=== PATIENT | female | born 1995 | race Hispanic/Latino ===

== ENCOUNTER 2016-08-22 17:24 | Emergency (ER) | payer OTHER ==
[~2016-08-22] VITALS: Ht 144.8 cm; Wt 54.5 kg
[~2016-08-22 17:24] MED LIST: IBUP-1827 PO; ONDA4TAB12 PO; PROM25TA14 PO
[2016-08-22 17:39] VITALS: BP 99/68; PULSE 75; RESP 16; O2SAT 98
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
[2016-08-22 19:21] VITALS: BP 109/61; PULSE 105; RESP 16; O2SAT 98
== END 2016-08-22 19:22 | disposition home or self-care (01) ==
LOC: SED 17:24
DX: O99.89 Other specified diseases and conditions complicating pregnancy, childbirth and the puerperium (principal); R30.0 Dysuria; R11.10 Vomiting, unspecified; R10.13 Epigastric pain; F15.20 Other stimulant dependence, uncomplicated; F17.200 Nicotine dependence, unspecified, uncomplicated; Z3A.00 Weeks of gestation of pregnancy not specified; Z87.820 Personal history of traumatic brain injury; Z87.891 Personal history of nicotine dependence

== ENCOUNTER 2017-01-15 12:34 | Inpatient (IN) | payer OTHER, MEDICAID ==
[~2017-01-15] VITALS: Ht 152.4 cm; Wt 65.3 kg
[2017-01-15 13:03] LABS: Mean Corpuscular Hemoglobin 22.9 pg (27.0-35.0); Mean Corpuscular Volume 73.9 fL (81-100)
[2017-01-15] MEDS: Lactated Ringer's 1,000 ML IV SCH ×2 (13:12→16:33)
[2017-01-15] MEDS ORDERED: Lactated Ringer's 1,000 ML IV PRN (13:12)
[2017-01-15] MEDS ORDERED: Ondansetron 2 mg/mL 2 mL Inj IVPUSH PRN ×3 (13:15→23:45)
[2017-01-15] MEDS ORDERED: Sodium Chloride LOK Flush 10 mL Syringe IVFLUSH PRN (13:15)
[2017-01-15] MEDS ORDERED: Hemorrhage Kit, Post Partum XX ONE (13:15)
[2017-01-15] MEDS ORDERED: Oxytocin 10 Unit/mL Inj IM PRN (13:15)
[2017-01-15] MEDS ORDERED: Oxytocin 30 Units/500 mL LR 30 UNITS in IV Premix 1 EACH IV PRN (13:15)
[2017-01-15] MEDS ORDERED: Carboprost 250 mCg/mL Inj IM PRN (13:15)
[2017-01-15] MEDS ORDERED: Methylergonovine 0.2 mg/mL Inj IM PRN (13:15)
[2017-01-15] MEDS: Misoprostol 25 mCg/0.25 Tablet VAGINAL SCH ×2 (13:15→16:10)
[2017-01-15] MEDS ORDERED: diphenhydrAMINE 50 mg Capsule PO PRN (13:15)
[2017-01-15] MEDS ORDERED: Penicillin G K Inj 5,000,000 UNITS in Dextrose 5% Minibag Plus 100 ML IV ONE (13:30)
[2017-01-15 14:03] LABS: Mean Corpuscular Hemoglobin 23.5 pg (27.0-35.0); Mean Corpuscular Volume 74.6 fL (81-100)
--- NOTE | 2017-01-15 14:13 | PCM.HPOB ---
Subjective Referring Provider: Admitting Physician: Rochelle Parrish MD Primary Care Physician: Arturo Garrison MD Attending Physician: Rochelle Parrish MD Chief Complaint high blood pressure History of Present History of Present Illness Ms. Elena Gabriel is a 21-year-old woman at 37 weeks 5 days gestation within BUD of 01/31/2017 based on initial 17 week ultrasound who presented to the [facility] for -induced hypertension. Her has been complicated by late entry into care, Chlamydia and gonorrhea in , positive amphetamine on urine drug screen during , and Charcot Lupe tooth disease. She was also incarcerated during this . She reports that yesterday she felt some lower abdominal discomfort with associated nausea and 1 episode of vomiting. This has since resolved. She does not have headache, changes in her vision, dizziness, lightheadedness, or increased swelling in her feet. She does not have any upper abdominal pain. She has not had any gushes of fluid, vaginal discharge, or vaginal bleeding. She has not felt any contractions. She has not had any fever, chills, nasal congestion, sore throat, cough, or rash. OB History: (1), Para (0), Term (0), Pre-term (0), ( 0), Living (0) Obstetrical Complications: Other (late entry into care, charcot lupe tooth disease, chlamydia and gonorrhea in , positive amphetamine UDS) Past Medical History Obstetrical History: She saw a genetic counselor at the [facility]. An amniocentesis was offered for diagnosis of Charcot Lupe Tooth, but she declined an amniocentesis. From the pt's EHR, she did indicate that she wants to test the baby shortly after . 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 There is a 1 in 2 chance that her child will inherit the gene mutation. Surgical History: Facial reconstruction for facial trauma Multiple foot surgeries Left hip surgery Hx Tobacco Use: Yes Smoking Status: Current Every Day Smoker (1-2 cigarettes per day ) Hx Alcohol Use: No Hx Substance Use: No Review of Systems Eyes: Denies: Blurred Vision, Double Vision Cardiovascular: Denies: Chest Pain Respiratory: Denies: Cough, SOB with Exertion Gastrointestinal: Denies: Constipation, Diarrhea, Epigastric pain, Nausea, Vomiting Genitourinary: Denies: Change in Frequency, Dysuria Skin/Breasts: Denies: Rash Neurological: Denies: Dizziness Medications Home medications vitamin Allergy Coded Allergies: No Known Allergies (Verified Allergy, Unknown, 08/22/16) Exam Vital Signs 98.4F, blood pressure 132/85, heart rate 106 bpm Exam Baseline 150s with variability Constitutional: Well-developed, Well-nourished HEENT: Atraumatic, EOMI Lungs: Clear to Auscultation, Normal Air Movement Heart: Exam Unremarkable, Regular Rate/Rhythm, Normal S1, Normal S2, No Murmurs /Rubs/Gallops Abdomen: Gravid, Normal bowel sounds, No tenderness Extremities: Pulses Palpable x4, Warm, No Edema Neurological/Psychiatric: Alert, Oriented X3, Cooperative, No Acute Distress Neuro: Cranial Nerves 3-12 nl, Normal Speech, Other (decreased muscle strength bilateral upper and lower extremities) Labs/Diagnostics Labs Item Value Date Time Blood Urea Nitrogen 13 mg/dL 01/15/17 1258 Creatinine 0.37 mg/dL L 01/15/17 1258 Uric Acid 5.1 mg/dL 01/15/17 1258 Aspartate Amino Transf (AST/SGOT) 18 U/L 01/15/17 1258 Alanine Aminotransferase (ALT/SGPT) 10 U/L 01/15/17 1258 White Blood Count 7.3 th/mm3 01/15/17 1349 Hematocrit 31.1 % L 01/15/17 1349 Platelet Count 186 khai/L 01/15/17 1349 Mean Corpuscular Hemoglobin Concent 31.5 % L 01/15/17 1349 Hemoglobin 9.8 g/dL L 01/15/17 1349 Red Blood Count 4.17 mil/mm3 01/15/17 1349 Mean Corpuscular Volume 74.6 fL L 01/15/17 1349 Mean Corpuscular Hemoglobin 23.5 pg L 01/15/17 1349 Red Cell Distribution Width 16.2 % H 01/15/17 1349 Maternal Blood Type: O (positive) Antibody Screen: negative Group B Strep Results: Positive Rubella: Non-Immune Additional Information labs: Blood type O+, antibody screen negative, Varicella non-immune, rubella non-immune, RPR nonreactive, HBsAg negative, HIV nonreactive, hepatitis C negative, gonorrhea and chlamydia positive, GBS positive, Pap smear showed Trichomonas vaginalis and negative for intraepithelial lesion and malignancy UDS on 11/20/2016 showed positive amphetamines, repeat UDS on December 04 and December 22 were negative. Repeat gonorrhea and chlamydia on 11/20/2016 were negative OB Intrapartum Assessment/Plan Assessment 21-year-old woman at 37 weeks 5 days gestation within BUD of 01/31/2017 based on initial 17 week ultrasound. Complicated by late entry into care, Chlamydia and gonorrhea in , positive amphetamine on urine drug screen during , and Charcot Lupe tooth disease. She was also incarcerated during this . GBS positive - Pt will need Varicella and rubella vaccines post- - Start Cytotec - Start penicillin G loading dose and then repeat every 4 hours until delivery - Monitor FHR - Repeat HIV, hepatitis C, hepatitis B, and RPR ordered due to pt being incarcerated during induced hypertension - Two elevated blood pressure readings at least 4 hours apart - Preeclampsia labs ordered and BUN, uric acid, AST, and ALT are within normal limits. Urine creatinine, protein, and protein/creatinine ratio ordered. - Monitor blood pressure - Induction of labor as above Chlamydia, gonorrhea, and Trichomonas infection in - Chlamydia, gonorrhea, and Trichomonas positive on Pap smear on 09/17/16 - She was treated with azithromycin and ceftriaxone. G&C negative on repeat testing after treatment on 11/20/16 - Repeat chlamydia and gonorrhea swab ordered in the outpatient office today - 2000 mg Flagyl PO once Late to care - Social work consult placed Positive UDS for amphetamines - UDS unable to be repeated in the office due to urine spill - Repeat UDS here Charcot Lupe Tooth disease - Will need lavender top and at least 2 mL whole blood for the 's cord blood genetic testing as discussed with pediatrics. The genetics office will fax Dr. Elena the specific orders that are needed. Evelina Cameron DO Jan 15, 2017 14:13
[2017-01-15] MEDS ORDERED: Penicillin G K Inj 3,000,000 UNITS in IV Premix 1 EACH IV SCH (17:30)
--- NOTE | 2017-01-15 20:14 | NUR ---
Social Work Note: Referral received D/A: DIKE SUPERVISOR spoke with [employer] inspector canned food reconditioning Monserrat regarding Pt. SW consult requested due to history of substance use and an amphetamine positive UDS during care. Monserrat reported that Pt was in induction at this time and it was agreed that DIKE SUPERVISOR would meet with Pt to complete assessment once NB had been delivered. P: DIKE SUPERVISOR to assess Pt fully once NB is delivered. Maya Byrne, MELY, AAC
[2017-01-15] MEDS: fentaNYL-PF 50 mCg/mL 2 mL Inj IVPUSH PRN ×2 (20:38→22:36)
--- NOTE | 2017-01-15 21:15 | PROG NOTE ---
[address] [address] PROGRESS NOTE PATIENT: MARVA DALEY : 1995 MR#: [id number] ADMIT: 01/15/2017 JOB ID: [id number] DATE: 01/15/2017 SUBJECTIVE: Patient is a 21-year-old, 1, para 0, at 37 weeks and 5 days gestational age by 17 week ultrasound, admitted by Dr. Moore for induction of labor secondary to gestational hypertension. Induction of labor started with number one at 16:[address] Moore. I saw the patient five hours later, and vital signs are 125/85, respirations are 18, pulse is 105, temperature 36.4 degrees centigrade. heart tracing is showing baseline of 135 beats per minute, positive accelerations, no decelerations, moderate variability, reactive tracing. Cervical exam 1 cm dilated cervix, 50% effaced, -3 station, medium consistency, mid position, vertex presentation. Rodriguez score of 4. Sterile speculum inserted in the patient's vagina and the cervical ripening balloon was inserted into the uterus. 80 cc of normal saline injected in the uterine balloon, then the speculum was removed and then after adjusting positioning of the balloon, 80 cc injected in the vaginal balloon. Adequate placement confirmed. The patient tolerated the insertion well. Continue with cervical ripening balloon for 12 hours or until balloon fell out. LABORATORIES: H and H is 9.8 and 31.1, platelets are 186. White blood count 7.3. UDS positive for cannabinoids. Confirmatory test is pending. ASSESSMENT AND PLAN: 1. Patient is 1, para 0, at 37 weeks 5 days gestational age by 17 week ultrasound, admitted for induction of labor secondary to gestational hypertension. Continue induction of labor with cervical ripening balloon to be followed by Pitocin if appropriate. 2. Group B strep culture positive. Start penicillin with active labor start or spontaneous rupture of membranes whichever is earlier. 3. Discussed intrapartum analgesia options with the patient. She is considering epidural. Will give IV pain medication p.r.n. until the patient has decided. 4. Reactive heart tracing. Continue with external monitoring. All the above discussed in detail with the patient who agreed to the plan.
[2017-01-15] MEDS ORDERED: fentaNYL 2 mCg/mL-Bupivicaine 0.125% 100 mL Premix EPIDURAL ONE (23:13)
[2017-01-15] MEDS ORDERED: Lactated Ringer's 1,000 ML IV SCH (23:36)
[2017-01-15] MEDS ORDERED: Lactated Ringer's 500 ML IV ONE ×2 (23:36→23:45)
--- NOTE | 2017-01-15 23:36 | PCM.HPANE ---
Patient Data Surgeon Admitting Provider:Rochelle Parrish MD Attending Provider:Rochelle Parrish MD Primary Care Physician:Arturo Garrison MD Other Provider: Reason for Visit Induction INDUCTION Ht/WT & BMI Body Mass Index Allergies Coded Allergies: No Known Allergies (Verified Allergy, Unknown, 08/22/16) Past Anesthesia History Anesthesia History: Denies:: Abnormal Airway, Anesthesia Reactions, Difficult Intubation, Fam Anesthesia Reaction, Fam Malignant Hypertherm, Malignant Hyperthermia Diabetes History Hx Diabetes?: No MRSA MRSA: No Medications Hypertension Medication: No Home Meds Incl Beta Flavio: No Active Scripts Ibuprofen 600 Mg [id number] Mg PO QID PRN For Pain #30 TABLET Ref 0 Prov:Kelsi Wallace MD 06/23/16 Ondansetron ODT 4 Mg Tab.rapdis4 Mg PO TID NAUSEA #8 TABLET Prov:Kelsi Wallace MD 06/23/16 Promethazine 25 Mg [id number] Mg PO Q8H PRN Headache #20 TABLET Ref 0 Prov:Dhaval Ojeda MD 03/16/16 History History of ENT Problems?: No HEENT History: Denies:: Abnormal Airway Cataracts Difficult Intubation Dysphagia Glaucoma Hearing Problem Sinus Problem TMJ Denture Type: None Teeth Condition: Within Normal Limits Hx of Heart Problems?: No Cardiovascular History: Denies:: AICD Abdominal Aortic Aneurism Atrial Fibrillation Cardiac Surgery Chest Pain Congestive Heart Failure Coronary Artery Disease Edema Heart Murmur Hypertension Irregular Heartbeat Pacemaker Peripheral Vascular Rheumatic Fever Thrombophlebitis Valvular Heart Disease Hx of Respiratory Problem?: No Respiratory History: Denies:: Asthma COPD Chest Surgery Cough Dyspnea Emphysema Hemoptysis Oxygen Administration Pneumonia Pulmonary Embolism Tuberculosis Use of C-PAP Machine Use of Inhalers / NEBS Hx Neurologic Problems?: Yes Neurological History: Positive for:: Peripheral Neuropathy Denies:: Alzheimer's Disease CVA Dementia Dizziness Headaches Multiple Sclerosis Parkinson's Disease Seizures TIA Other History/Comments CMT Hx of GI Problems?: No Gastrointestinal History: Denies:: Cirrhosis Diverticulitis Gall Bladder Disease Gastroesphageal Reflux Gastrointestinal Bleeding Heartburn Hepatitis Hiatal Hernia Liver Disease Rectal Bleeding Hx of Problems?: No Genitourinary History: Denies:: HX of Hemodialysis Kidney Stones Urinary Tract Infection HX of Peritoneal Dialysis: No Female Hx: Positive for:: Currently Hx Musculoskeletal Problems?: No Hx of Psycho/Social Problems?: No Hx Surgeries?: Yes (HIP/FOOT, MULTIPLE FACE SURGERIES/RECONSTRUCTION) History Blood Transfusions: Denies:: Blood Transfusions Hx Diabetes: No Hx Alcohol Use: NoHx Substance Use: No Smoking Status: Current Every Day Smoker (1-2 cigarettes per day ) Have You Smoked inLast 12 mo: Yes Stop/Bang MYNOR Risk Assessment: Low Risk, <3 Yes Risk Assessment Category Category 1A: Patient has history of documented sleep apnea, and HAS NOT received any narcotic, sedative or anesthesia administration during this stay. Category 1B: Patient has history of documented sleep apnea, and HAS received any narcotic , sedative or anesthesia administration during this stay Category 2: Patient has SUSPECTED Obstructive Sleep Apnea, and HAS received any narcotic , sedative or anesthesia administration during this stay. Category 3: Patient has SUSPECTED Obstructive Sleep Apnea and HAS NOT received narcotic, sedative or anesthesia administration during this stay. Category 4: Outpatient in Procedural Areas with known sleep apnea or who screen positive for High Risk via the STOP/BANG questionnaire. Exam Exam General Appearance: Alert, Oriented X3, Cooperative, No Acute Distress HEENT/AIRWAY: MP 2 Lungs: Clear to Auscultation, Normal Air Movement Heart: Exam Unremarkable, Regular Rate/Rhythm, Normal S1, Normal S2, No Murmurs /Rubs/Gallops Meds/Labs/Diagnostics Admission Meds Current Medications Lactated Ringer's (Lr) 1,000 ml @ 125 mls/hr Q8H IV Last administered on 16:33; Start 01/15/17 at 13:12 Misoprostol (Cytotec) 25 mcg Q4H VAGINAL Last administered on 01/15/17 16:10; Start 01/15/17 at 13:15 Metronidazole HCl (Flagyl) 2,000 mg ONCE ONCE PO Last administered on 16:59; Start 01/15/17 at 16:15; Stop 01/15/17 at 16:20; Status DC Labs Test 01/15/17 12:58 01/15/17 13:49 01/15/17 18:24 Hematology Comments Blood Urea Nitrogen 13mg/dL (6-20) Creatinine 0.37mg/dL (0.57-1.00) Uric Acid 5.1mg/dL (2.6-7.2) Aspartate Amino Transf (AST/SGOT) 18U/L (0-50) Alanine Aminotransferase (ALT/SGPT) 10U/L (0-32) White Blood Count 7.3th/mm3 (3.8-10.1) Red Blood Count 4.17mil/mm3 (3.90-5.20) Hemoglobin 9.8g/dL (12.0-15.6) Hematocrit 31.1% (35.0-46.0) Mean Corpuscular Volume 74.6fL (81-100) Mean Corpuscular Hemoglobin 23.5pg (27.0-35.0) Mean Corpuscular Hemoglobin Concent 31.5% (32.0-37.0) Red Cell Distribution Width 16.2% (12.3-15.4) Platelet Count 186bil/L (150-400) Urine Random Creatinine 92mg/dL (16-392) Urine Random Total Protein 43mg/dL (0-15) Urine Protein/Creatinine Ratio 0.47 (0-200) Urine Opiates Screen Negative Urine Methadone Screen Negative Urine Barbiturates Screen Negative Urine Amphetamines Screen Negative Urine Benzodiazepines Screen Negative Urine Cocaine Metabolite Screen Negative Urine Cannabinoids Screen Positive Plan Impression Patient chart reviewed, patient interviewed and anesthestic plan with risks, benefits, and alternatives discussed, and informed consent obtained. NPO per Anesth. Guidelines: Yes ASA Physical Status: ASA2 Mod Systemic Disease Anesthetic Plan: Epidural Bene/Risks/Altern/Consents: No HP Complete Prior to Induction: No Sung Eldridge MD Jan 15, 2017 23:36
[2017-01-15] MEDS ORDERED: Atropine 1 mg/10 mL (Code) Syringe IVPUSH PRN (23:40)
[2017-01-15] MEDS ORDERED: fentaNYL 2 mCg/mL-Bupiv 0.125% 100 ML EPIDURAL SCH (23:40)
[2017-01-15] MEDS ORDERED: EPHEDrine Sulfate 50 mg/mL Inj IVPUSH PRN (23:40)
[2017-01-16] MEDS ORDERED: Sodium Chloride LOK Flush 10 mL Syringe IVFLUSH SCH (00:30)
[2017-01-16] MEDS ORDERED: Lactated Ringer's 1,000 ML IV SCH ×2 (05:09→07:58)
[2017-01-16] MEDS ORDERED: Oxytocin 30 Units/500 mL LR 30 UNITS in IV Premix 1 EACH IV PRN ×2 (05:10→08:00)
[2017-01-16] MEDS ORDERED: Carboprost 250 mCg/mL Inj IM PRN (08:00)
[2017-01-16] MEDS ORDERED: Ascorbic Acid 500 mg Tablet PO SCH (08:00)
[2017-01-16] MEDS ORDERED: Hemorrhage Kit, Post Partum XX ONE (08:00)
[2017-01-16] MEDS ORDERED: Benzocaine (Dermoplast) 20% 60 Gm Spray TOPICAL PRN (08:00)
[2017-01-16] MEDS ORDERED: oxyCODONE-Acetamin 5-325 mg Tablet PO PRN (08:00)
[2017-01-16] MEDS ORDERED: Methylergonovine 0.2 mg/mL Inj IM PRN (08:00)
[2017-01-16] MEDS ORDERED: Oxytocin 10 Unit/mL Inj IM PRN (08:00)
[2017-01-16] MEDS ORDERED: LANOlin HPA 7 Gm Ointment TOPICAL PRN (08:00)
[2017-01-16] MEDS ORDERED: Witch Hazel-Glycerin Pads TOPICAL PRN (08:00)
--- NOTE | 2017-01-16 08:45 | OP ---
[address] [address] OPERATIVE REPORT PATIENT: MARVA DALEY : 1995 MR#: [id number] ADMIT: 01/15/2017 JOB ID: [id number] DATE OF SURGERY: 01/16/2017 DELIVERY NOTE: SURGEON: Carlos Enrique Bess MD. PREOPERATIVE DIAGNOSIS(ES): POSTOPERATIVE DIAGNOSIS(ES): PROCEDURE: A 21-year-old, 1, para 0, at 37 weeks and 6 days by 17 week ultrasound, who is admitted for induction of labor for gestational hypertension. Induction started with Cytotec, followed by cervical ripening and balloon and after the balloon was filled, the patient progressed spontaneously to fully dilated. She progressed from 6 cm to fully dilated in a few minutes and had a spontaneous vaginal delivery with nursing staff. When I arrived, the placenta was delivering spontaneously. Upon inspection it was noted to be intact with three-vessel cord marginally inserted. Firm uterine fundus after delivery of the placenta. No blood clots retrieved. Inspection of the perineum revealed three lacerations, one second degree perineal at 6 o'clock position and two labial lacerations bilaterally. Lidocaine 1% with epinephrine was injected for local analgesia at the three sites. Rectal exam confirmed the second degree perineal laceration. The perineal laceration was repaired in two layer fashion with continuous locked suture of 2-0 Vicryl and the labial lacerations were repaired with 3-0 Vicryl continuous suture. Good hemostasis assured. The patient tolerated the procedure well. FINDINGS: Single viable female with Apgars 8/9. Weight is still pending. ESTIMATED BLOOD LOSS: Approximately 200 cc. Mom and baby recovering in stable condition in labor and delivery room. 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 cord blood collected for testing and specimen will be sent for outside lab by back grinder. History of amphetamines. UDS on admission was positive for cannabinoids only. Rubella nonimmune, we will vaccinate . Recurrent chlamydia and Trichomonas was treated by the Dr. Moore yesterday. Consider repeat testing . COUNTS: Sponge, instrument and needle counts were correct x2.
[2017-01-16] MEDS ORDERED: Measles-Mumps-Rubella Vaccine 0.5 mL Inj SUBQ ONE (12:40)
[2017-01-17 08:00] LABS: Mean Corpuscular Hemoglobin 22.9 pg (27.0-35.0); Mean Corpuscular Volume 74.8 fL (81-100)
--- NOTE | 2017-01-17 09:30 | PCM.DIOB ---
Obstetrical Disch Instruction Dates of Hospitalization Date of Hospital Admission Jan 15, 2017 at 13:00 Providers Admitting Physician: Rochelle Parrish MD Primary Care Physician: Arturo Garrison MD Attending Physician: Rochelle Parrish MD Diet Discharge Diet: No restrictions Activity Discharge Activity-General: Pelvic Rest for 6 weeks, Balance rest and activity , Activity as energy allows, No lifting >10 pounds for 4-6 weeks Dressing and Incisional Care Hygiene: May shower, NO bathtub, hot tub or whirlpool, Sitz bath, Dermoplast spray, Witch Ele pads Follow Up Plan Follow-up appointment: Weeks (6) Call your provider for: Fever or Chills, Shortness of breath, Heavy vaginal bleeding Kimber Moore MD Jan 17, 2017 09:30
[2017-01-17] MEDS ORDERED: DOCU-41 PO (09:34)
[2017-01-17] MEDS ORDERED: IBUP800T28 PO (09:34)
[2017-01-17] MEDS ORDERED: FERR-83 PO (09:37)
[2017-01-17 09:42] VITALS: BP 119/87; PULSE 102; RESP 20
--- NOTE | 2017-01-17 10:55 | NUR ---
Social Work Note: Initial Assessment D/A: PORTER SAMPLE CASE consult requested due to a positive UDS for THC in the hospital and a positive UDS for amphetamines during care as well as various social concerns. PORTER SAMPLE CASE spoke with [facility] staff developer and was informed that Pt has been slow to hardin and not engaged in caring for BG. staff developer indicated that Pt's mother had been providing the majority of care for BG and had been initiating feedings and diaper changes while Pt sat and observed. 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 There is a high probability that BG could also develop this disorder. staff developer indicated that Pt's mother would be out of town this week for work and would not be available to assist Pt when she discharges home. staff developer expressed concerns regarding Pt's ability to successfully and safely care for BG at home independently at discharge. PORTER SAMPLE CASE met with Pt at bedside. Pt is a 21 year old female who gave to BG on 01/16/2017. Pt reported that she currently lives with her parents and her brother in [place]. Pt expressed her intent to return to this home with BG upon discharge. Pt reported that she did not have supplies for BG when she was initially admitted but that family had since supplied a car seat, crib, clothing and diapers. PORTER SAMPLE CASE noted the car seat in the hospital room. Pt explained that her parents were going to be out of town until , 01/22/2017. Pt indicated that she would not be alone at home this week because her brother and his girlfriend also live in the home and will be in town. Pt further explained that her sister lives just down the street from her home and will be available to help if needed during the day. Pt reported that she is not currently enrolled in WIC or TANF but is receiving food stamps and SSI related to her disability. Pt indicated that she was positive for amphetamines just after she found out that she was and denied any further use of meth throughout the . Pt reported that her head injuries cause her to experience headaches which she treats using edible THC. Pt explained that she last used THC two weeks prior to admission to the hospital. Pt reported that she is currently on probation related to an arrest for driving under the influence and without a license a few months ago. Pt indicated that she also attends court ordered CD treatment with [facility]. Pt explained that she is scheduled to turn herself in to the [facility]p for a 10 day stay in April and has already arranged for BG to be cared for by her family during that time. Pt denied all other legal history. Pt denied any history of DV or mental illness. Pt reported that she has supportive family and friends who are planning to assist her in caring for BG. Pt reported that she does not know who FOB is and does not have a supportive or involved partner. Pt identified no additional needs prior to discharge. P: Pt was positive for THC at delivery and staff developer expressed significant concerns regarding Pt's engagement in caring for BG and Pt's level of social support. PORTER SAMPLE CASE conferred with [facility] MD Rodriguez and the decision was made to notify [facility]PS of the above concerns. PORTER SAMPLE CASE informed Pt of the decision to report to CPS and encouraged Pt to view CPS involvement as a positive thing that would possibly provide additional supports and Pt expressed that she intended to do this. PORTER SAMPLE CASE called CPS and spoke with CPS salvage worker Jeff Danielson to provide the above information. Jeff indicated that he was not sure if the information would screen in for further investigation and expressed that PORTER SAMPLE CASE would be contacted by CPS verifier if it did. [facility] MD Rodriguez indicated that Pt would be discharged to border status today and BG would require a few more days of observation for possible withdrawal symptoms prior to discharge. Maya Byrne, PORTER SAMPLE CASE, AAC
--- NOTE | 2017-01-17 12:02 | DIS ---
[address] [address] DISCHARGE SUMMARY PATIENT: MARVA DALEY : 1995 MR#: [id number] ADMIT: 01/15/2017 JOB ID: [id number] DIS: 01/17/2017 ADMISSION DIAGNOSES: 1. A 21-year-old G 1, P 0 at 37 plus five weeks' gestation admitted for an induction of labor due to gestational hypertension. 2. Late entry into care. 3. Multiple positive gonorrhea and Chlamydia tests in with test of cure documented. 4. Positive amphetamines on urine drug screen of . 5. Untreated Trichomonas infection during treated at the time of admission. 6. Hapstmf-Smqoc-Nixeh disease. 7. Rubella and varicella immune. 8. Poor social situation, incarcerated this . 9. GBS positive. DISCHARGE DIAGNOSES: 1. A 21-year-old G 1, P 0 at 37 plus five weeks' gestation admitted for an induction of labor due to gestational hypertension. 2. Late entry into care. 3. Multiple positive gonorrhea and Chlamydia tests in with test of cure documented. 4. Positive amphetamines on urine drug screen of . 5. Untreated Trichomonas infection during treated at the time of admission. 6. Zprlybk-Ofvgz-Lfzcr disease. 7. Rubella and varicella immune. 8. Poor social situation, incarcerated this . 9. GBS positive. PROCEDURES PERFORMED: Spontaneous vaginal delivery of a live born female infant on January 16, 2017 at 0621 hour weighing 7 pounds 5 ounces or 3327 g with Apgars of 8 at one minute and 9 at five minutes. REASON FOR ADMISSION: This is a 21-year-old G 1, P 0 female who presented at 37 plus five weeks' gestation for induced hypertension. Her was complicated by late entry into care with multiple gonorrhea and Chlamydia tests in the with a documented test of cure, positive amphetamine and cannabinoids on her urine drug screen, Hcthavm-Uqpfh-Wlsls genetic disorder and untreated Trichomonas in her that was identified at the time of admission. She was seen in clinic and noted to have elevated blood pressures. She also had limited care and due to her multiple elevated blood pressures she was sent over to the [facility] for evaluation. When diagnostic criteria for gestational hypertension was met, it was at this point in time she was admitted for a planned induction of labor. REASON FOR ADMISSION AND HOSPITAL COURSE: The patient was admitted on the for an induction of labor. She received 2 g of Flagyl at admission for her untreated Trichomonas. Cytotec was placed the afternoon of the and after this was completed, she then had a Campos cervical ripening balloon placed. Penicillin was also started for her GBS positive status and a urine drug screen as well as STD testing was completed returning positive for marijuana but was otherwise within normal limits. After the cervical ripening balloon was inserted, she spontaneously progressed to complete dilation in a short period of time and then went on to deliver with the nursing staff prior to the providers arrival. Please see the delivery note for details. On day #1, her pain was well controlled. She was tolerating a regular diet. She was voiding and ambulating well on her own and her was doing well as well. Social Work was consulted due to the patient's poor social situation and they will see the patient again prior to her discharge. She was noted to be rubella and varicella nonimmune and had received an MMR vaccine prior to discharge. Varicella vaccine will be followed up in our clinic as an outpatient. She was deemed stable for discharge on day one after Social Work saw her . Her blood pressures were also noted to be stable throughout her time on labor and delivery and throughout the evening of day 0 through day 1, her blood pressures range from 110s-130s/70s-80s. PHYSICAL EXAMINATION ON DAY OF DISCHARGE: Blood pressure is 119/87, pulse is 102, respiratory rate is 18. Temperature is 36.6. In general she is awake, alert, oriented, no acute distress. Comfortable in her room. She is eating breakfast and sitting up in bed and the remainder the physical examination was deferred. Her mood is good. Her is in the room and is bottle feeding next to her with a family member. INSTRUCTIONS AT DISCHARGE: The patient was advised to remain on pelvic rest for six weeks including no tampons, douching or intercourse. She was asked to call with any signs or symptoms of infection including fever greater than 100.5 degrees, severe pain, malodorous vaginal discharge or bleeding more than a pad per hour. MEDICATIONS AT DISCHARGE: Included ibuprofen 800 mg p.o. q.8 hours p.r.n. pain as well as Colace 100 mg p.o. b.i.d. On day one, labs were completed which showed that her hemoglobin had dropped from 10 pre delivery down to 7.2, and so ferrous sulfate started at 325 mg p.o. t.i.d. was ordered. She was also given a prescription for Colace and asked to continue her vitamins as prescribed. She was Rh positive. She had received her rubella vaccine prior to discharge and she will followup with her varicella vaccine as an outpatient as this is not available in the hospital. All questions and concerns of the patient were answered and she was deemed stable for discharge on post day #1 pending a social work consultation and disposition planning as this has not been determined at this time.
--- NOTE | 2017-01-22 14:41 | NUR ---
Social Work Note: Cord Stat D/A/P: LANGUAGE ARTS TEACHER received a call from [facility] indicating that Pt's cord stat results returned showing that Pt was positive for amphetamines and THC. MELY called [facility]PS and provided the new information to Azael in Intake. Azael indicated that he would enter the information into Pt's case file. MELY Piper, AAC
--- NOTE | 2017-01-22 15:29 | PATH ---
SURGICAL PATHOLOGY Attending Physician:Rochelle Parrish, CASE STATUS: Signed Out PATIENT NAME: MARVA DALEY PID: [id number] : 1995 DATE COLLECTED:01/16/2017 17:12 SPECIMEN: Placenta CLINICAL HISTORY: GHTN 1. PLACENTA FINAL DIAGNOSIS: Navarro Placenta: Placenta parenchyma: Chorionic villous maturation is focally slightly less mature than for third-trimester placenta. Mild to moderate inter- and intravillous fibrin is present. Fibrin clot (3.0 x 2.0 cm) is present 5.0 cm from the umbilical insertion site. Possible medial coat proliferation of medium-sized vessels. No villitis identified. Umbilical cord: Length: 15.0 cm. Attached 5.2 cm from the placental disc margin. Three vessels present. Very focal, possible funisitis present. Membranes: Ruptured at the free edge of the placental disc margin. No chorioamnionitis identified. ICD10: O13.9 GROSS DESCRIPTION: The specimen is received in formalin, labeled with the patient's name and consists of an intact placenta and includes placental disc (489 g, 18.3 x 15.7 x 2.6 cm), umbilical cord (length-15.0 cm, diameter-1.0 x 1.0 cm) and membranes. The membranes are ruptured at the free edge of the placenta and are semi-translucent. The umbilical cord is attached 5.2 cm from the edge of the placenta and contains 3 vessels. The surface is bosselated and shiny with no evidence of meconium identified. A pale malik-white opacity (3.0 x 2.0 cm) is 5.0 from the umbilical insertion site. The maternal surface is dark maroon with normal cotyledon formation. The placental disc is spongy with no hematomas, infarcts, nodules, masses, or lesions. Section code: (A) edge of placenta with membranes, umbilical cord; (B-D) placenta, 3 full thickness sections. 01/17/17 ICD-9 CODES: CPT CODES: 1: 83366 Electronically Signed Out By Bev Gallardo MD [facility] Bev Gallardo MD [facility], [address] [place] [id number] Technical component performed at [facility], [address], [place], [address]
[2017-01-24 13:09] LABS: Cannabinoid Positive (.)
== END 2017-01-17 13:10 | disposition home or self-care (01) | DRG 774 ==
LOC: FBCO 12:34 → FBC 13:00
PROVIDERS: ADMIT Obstetrics & Gynecology; ATTEND Obstetrics & Gynecology
PROC: 0U7C7ZZ Dilation of Cervix, Via Natural or Artificial Opening (ICD-10-PCS; 2017-01-15)
PROC: 10E0XZZ Delivery of Products of Conception, External Approach (ICD-10-PCS; principal; 2017-01-16)
PROC: 0KQM0ZZ Repair Perineum Muscle, Open Approach (ICD-10-PCS; 2017-01-16)
PROC: 3E0334Z Introduction of Serum, Toxoid and Vaccine into Peripheral Vein, Percutaneous Approach (ICD-10-PCS; 2017-01-16)
DX: O13.4 Gestational [pregnancy-induced] hypertension without significant proteinuria, complicating childbirth (principal); O98.22 Gonorrhea complicating childbirth; O98.32 Other infections with a predominantly sexual mode of transmission complicating childbirth; R71.0 Precipitous drop in hematocrit; O90.89 Other complications of the puerperium, not elsewhere classified; O70.1 Second degree perineal laceration during delivery; O99.324 Drug use complicating childbirth; F12.90 Cannabis use, unspecified, uncomplicated; O99.824 Streptococcus B carrier state complicating childbirth; Z3A.37 37 weeks gestation of pregnancy; Z23 Encounter for immunization